=== PATIENT | female | born 1935 | race Two or more races ===

== ENCOUNTER 2018-09-06 16:28 | Inpatient (IN) | payer MEDICARE, OTHER ==
[~2018-09-06] VITALS: Ht 160 cm; Wt 54.0 kg
[2018-09-06 17:04] LABS: BASOPHILS % (AUTO) 0.5 % (0.0-2.0); EOSINOPHILS % (AUTO) 4.4 % (1.0-6.0); HEMATOCRIT 34.2 % (36-46); HEMOGLOBIN 11.3 g/dL (12.0-16.0); LYMPHOCYTES # (AUTO) 0.9 K/uL (1.0-4.8); LYMPHOCYTES % (AUTO) 6.2 % (22.0-44.0); MEAN CORPUSCULAR HEMOGLOBIN 32.9 pg (26.0-34.0); MEAN CORPUSCULAR HGB CONC 32.9 G/dL (31.0-37.0); MEAN CORPUSCULAR VOLUME 100 fL (80-100); MONOCYTES # (AUTO) 0.7 K/uL (0.1-1.0); MONOCYTES % (AUTO) 4.9 % (2.0-9.0); NEUTROPHILS # (AUTO) 11.8 K/uL (1.8-7.7); PLATELET COUNT (AUTO) 280 K/uL (150-450); RED BLOOD CELL COUNT(AUTO) 3.42 MIL/uL (4.00-5.20); RED CELL DISTRIBUTION WIDTH 16.2 % (11.5-14.5)
[2018-09-06 17:16] LABS: ANION GAP 8 mmol/L (8-16); CARBON DIOXIDE 28 mmol/L (22-29); CHLORIDE 100 mmol/L (98-107); CREATININE 0.82 mg/dL (0.60-1.30); GLUCOSE,RANDOM 292 mg/dL (70-110); POTASSIUM 3.7 mmol/L (3.5-5.1); SODIUM SERUM 136 mmol/L (136-145); UREA NITROGEN, BLOOD 32 mg/dL (7-18)
[2018-09-06 17:22] LABS: ALANINE AMINOTRANSFERASE 18 U/L (12-78); ALBUMIN 3.1 g/dL (3.4-5.0); ALKALINE PHOSPHATASE 118 U/L (46-116); ASPARTATE AMINOTRANSFERASE 12 U/L (15-37); BILIRUBIN,TOTAL 0.3 mg/dL (0.1-1.0); TOTAL PROTEIN, SERUM 6.7 g/dL (6.4-8.2)
[2018-09-06 17:24] LABS: GLOMERULAR FILTR. RATE CALC > 60 mL/min (>60)
[2018-09-06 17:27] LABS: B-TYPE NATRIURETIC PEPTIDE 198 pg/mL (0-100)
[2018-09-06] MEDS ORDERED: SODIUM CHLORIDE 0.9% 1,750 ML IV ONE (17:27)
[2018-09-06] MEDS ORDERED: LEVO50 GT (17:29)
[2018-09-06] MEDS ORDERED: INSU100V12 SQ (17:29)
[2018-09-06] MEDS ORDERED: MAGOX GT (17:29)
[2018-09-06] MEDS ORDERED: BISA5TAB12 PR (17:29)
[2018-09-06] MEDS ORDERED: CARV6 GT (17:29)
[2018-09-06] MEDS ORDERED: HEPA500014 SQ (17:29)
[2018-09-06] MEDS ORDERED: FAMO20 GT (17:29)
[2018-09-06] MEDS ORDERED: AMLO-511 GT (17:29)
[2018-09-06] MEDS ORDERED: LEVOFLOXACIN 500 MG/D5% WATER 100 ML IV ONE (17:30)
[2018-09-06] MEDS ORDERED: MYCO250C36 GT (17:34)
[2018-09-06] MEDS ORDERED: THIA100T67 GT (17:34)
[2018-09-06] MEDS ORDERED: TACR1 GT (17:34)
[2018-09-06] MEDS ORDERED: PRED5 GT (17:34)
[2018-09-06] MEDS ORDERED: BISA10S PR (17:41)
[2018-09-06] MEDS ORDERED: HEPA500018 SQ (17:41)
[2018-09-06 17:49] LABS: LACTIC ACID 2.2 mmol/L (0.4-2.0)
[2018-09-06] MEDS ORDERED: ACETAMINOPHEN 1000 MG/ISO-OSM 100 ML IV ONE (18:00)
[2018-09-06 18:21] LABS: APPEARANCE,URINE CLOUDY (CLEAR); BILIRUBIN,URINE NEGATIVE (NEGATIVE); GLUCOSE, URINE (UA) 500 mg/dL (NEGATIVE); KETONES,URINE NEGATIVE (NEGATIVE); LEUKOCYTE ESTERASE ,URINE LARGE (NEGATIVE); NITRATE,URINE NEGATIVE (NEGATIVE); OCCULT BLOOD,URINE MODERATE (NEGATIVE); PH,URINE 6.5 (5.0-8.0); PROTEIN,URINE POS 1+ (NEGATIVE)
[2018-09-06 18:59] LABS: BACTERIA,URINE Moderate /HPF (None Seen); WBC,URINE 51-100 /HPF (0-5)
[2018-09-06 19:01] LABS: SQUAMOUS EPITHELIAL CELL,UR Moderate /LPF (None Seen)
[2018-09-06] MEDS ORDERED: 0.9% SODIUM CHLORIDE 10 ML SYRINGE IVP PRN (19:15)
[2018-09-06] MEDS ORDERED: ACETAMINOPHEN 325 MG TABLET PO PRN ×2 (19:15→21:00)
[2018-09-06] MEDS ORDERED: ONDANSETRON HCL 4 MG/2 ML VIAL IVP PRN ×2 (19:15→21:00)
[2018-09-06] MEDS ORDERED: OXYGEN THERAPY IH SCH (20:00)
[2018-09-06 20:22] LABS: INFLUENZA TYPE A NEGATIVE FOR TYPE A (NEGATIVE); INFLUENZA TYPE B NEGATIVE FOR TYPE B (NEGATIVE)
[2018-09-06] MEDS ORDERED: DOCUSATE SODIUM 100 MG CAPSULE PO SCH (21:00)
[2018-09-06] MEDS ORDERED: POTASSIUM CHLORIDE 20 MEQ ER TABLET PO PRN (21:00)
[2018-09-06] MEDS ORDERED: FAMOTIDINE 20 MG TABLET PO SCH (21:00)
[2018-09-06] MEDS ORDERED: MAGNESIUM HYDROXIDE SUSPENSION 30 ML UDCUP PO PRN (21:00)
[2018-09-06] MEDS ORDERED: DEXTROSE 50%-WATER 25 GM/50 ML SYRINGE IVP PRN (21:00)
[2018-09-06] MEDS ORDERED: POTASSIUM CHL 10 MEQ/WATER 50 ML IV PRN (21:00)
[2018-09-06] MEDS ORDERED: SODIUM CHLORIDE 0.9% 1,000 ML IV ONE (21:15)
[2018-09-06] MEDS ORDERED: MAGNESIUM HYDROXIDE SUSPENSION 30 ML UDCUP GT PRN (21:30)
[2018-09-06 21:34] VITALS: BP 126/69
[2018-09-06] MEDS: MEROPENEM 2 GM in SODIUM CHLORIDE 0.9% 100 ML IV SCH (22:44)
[2018-09-06 23:49] VITALS: BP 97/51
[2018-09-07] MEDS: HEPARIN SODIUM,PORCINE 5,000 UNITS/ML VIAL SQ SCH ×4 (00:22→23:40)
[2018-09-07 04:38] VITALS: BP 145/72
[2018-09-07] MEDS: MEROPENEM 2 GM in SODIUM CHLORIDE 0.9% 100 ML IV SCH (05:42)
[2018-09-07] MEDS ORDERED: PNEUMOCOCCAL VACCINE POLYVALENT 0.5 ML VIAL [PPSV23] IM ONE (06:00)
[2018-09-07 07:05] LABS: BASOPHILS % (AUTO) 0.4 % (0.0-2.0); EOSINOPHILS % (AUTO) 1.1 % (1.0-6.0); HEMOGLOBIN 10.6 g/dL (12.0-16.0); LYMPHOCYTES # (AUTO) 1.3 K/uL (1.0-4.8); LYMPHOCYTES % (AUTO) 8.6 % (22.0-44.0); MEAN CORPUSCULAR HEMOGLOBIN 33.6 pg (26.0-34.0); MEAN CORPUSCULAR HGB CONC 33.2 G/dL (31.0-37.0); MEAN CORPUSCULAR VOLUME 101 fL (80-100); MONOCYTES % (AUTO) 6.7 % (2.0-9.0); NEUTROPHILS # (AUTO) 12.3 K/uL (1.8-7.7); NEUTROPHILS % (AUTO) 83.2 % (40.0-70.0); PLATELET COUNT (AUTO) 227 K/uL (150-450); RED BLOOD CELL COUNT(AUTO) 3.16 MIL/uL (4.00-5.20); RED CELL DISTRIBUTION WIDTH 15.7 % (11.5-14.5)
[2018-09-07 07:25] VITALS: BP 145/73
[2018-09-07 07:46] LABS: ALANINE AMINOTRANSFERASE 17 U/L (12-78); ALBUMIN 2.6 g/dL (3.4-5.0); ALKALINE PHOSPHATASE 81 U/L (46-116); ANION GAP 8 mmol/L (8-16); ASPARTATE AMINOTRANSFERASE 16 U/L (15-37); BILIRUBIN,TOTAL 0.3 mg/dL (0.1-1.0); CALCIUM, TOTAL 10.4 mg/dL (8.8-10.5); CARBON DIOXIDE 27 mmol/L (22-29); CHLORIDE 103 mmol/L (98-107); CREATININE 0.55 mg/dL (0.60-1.30); GLUCOSE,RANDOM 173 mg/dL (70-110); POTASSIUM 3.5 mmol/L (3.5-5.1); SODIUM SERUM 138 mmol/L (136-145); TOTAL PROTEIN, SERUM 5.9 g/dL (6.4-8.2); UREA NITROGEN, BLOOD 27 mg/dL (7-18)
[2018-09-07 07:51] LABS: GLOMERULAR FILTR. RATE CALC > 60 mL/min (>60)
[2018-09-07] MEDS ORDERED: WATER FOR IRRIGATION,STERILE 1000 ML SOLUTION BOTTLE ONE (08:58)
[2018-09-07] MEDS ORDERED: MYCOPHENOLATE MOFETIL 250 MG CAPSULE PEG SCH (09:00)
[2018-09-07] MEDS: PredniSONE 5 MG TABLET GT SCH (09:01)
[2018-09-07] MEDS: DOCUSATE SODIUM 100 MG CAPSULE GT SCH ×2 (09:01→21:47)
[2018-09-07] MEDS: TACROLIMUS ANHYDROUS 1 MG CAPSULE PEG SCH ×2 (09:01→21:47)
[2018-09-07] MEDS: FAMOTIDINE 20 MG TABLET GT SCH ×2 (09:01→21:48)
[2018-09-07 11:37] VITALS: BP 139/73
[2018-09-07] MEDS: MEROPENEM 1 GM in SODIUM CHLORIDE 0.9% 100 ML IV SCH ×2 (14:12→21:56)
[2018-09-07] MEDS ORDERED: 0.9% SODIUM CHLORIDE 5 ML NEB SOLUTION NEB ONE ×2 (15:06→20:07)
[2018-09-07] MEDS: ALBUTEROL SULFATE 2.5 MG/0.5 ML NEB SOLUTION NEB PRN ×2 (15:08→20:19)
[2018-09-07 16:16] VITALS: BP 147/79
[2018-09-07 19:56] VITALS: BP 153/77
[2018-09-07 23:18] VITALS: BP 145/78
[2018-09-08] VITALS (7 sets, daily range): BP systolic 145–178; BP diastolic 73–89
[2018-09-08] MEDS: MEROPENEM 1 GM in SODIUM CHLORIDE 0.9% 100 ML IV SCH ×3 (06:01→21:57)
[2018-09-08 06:22] LABS: ANION GAP 4 mmol/L (8-16); CALCIUM, TOTAL 10.7 mg/dL (8.8-10.5); CARBON DIOXIDE 30 mmol/L (22-29); CHLORIDE 103 mmol/L (98-107); CREATININE 0.59 mg/dL (0.60-1.30); GLUCOSE,RANDOM 185 mg/dL (70-110); POTASSIUM 3.6 mmol/L (3.5-5.1); SODIUM SERUM 137 mmol/L (136-145); UREA NITROGEN, BLOOD 19 mg/dL (7-18)
[2018-09-08 06:28] LABS: GLOMERULAR FILTR. RATE CALC > 60 mL/min (>60)
[2018-09-08 07:04] LABS: GLUCOMETER DEV NAME(LOC) 6N.1; GLUCOSE,POINT OF CARE 189 MG/DL (70-110)
[2018-09-08] MEDS: TACROLIMUS ANHYDROUS 1 MG CAPSULE PEG SCH ×2 (08:40→20:15)
[2018-09-08] MEDS: DOCUSATE SODIUM 100 MG CAPSULE GT SCH ×2 (08:40→20:16)
[2018-09-08] MEDS: FAMOTIDINE 20 MG TABLET GT SCH ×2 (08:40→20:16)
[2018-09-08] MEDS: PredniSONE 5 MG TABLET GT SCH (08:40)
[2018-09-08] MEDS: HEPARIN SODIUM,PORCINE 5,000 UNITS/ML VIAL SQ SCH ×3 (08:43→23:57)
[2018-09-08] MEDS ORDERED: DEXTROSE 50%-WATER 25 GM/50 ML SYRINGE IVP PRN (09:00)
[2018-09-08] MEDS: INSULIN REGULAR, HUMAN 100 UNITS/ML SQ PRN ×3 (12:53→20:44)
[2018-09-08 14:34] LABS: GLUCOMETER DEV NAME(LOC) 6N.2; GLUCOSE,POINT OF CARE 194 MG/DL (70-110)
[2018-09-08 17:15] LABS: GLUCOMETER DEV NAME(LOC) 6N.2; GLUCOSE,POINT OF CARE 181 MG/DL (70-110)
[2018-09-08] MEDS: ACETAMINOPHEN 325 MG TABLET GT PRN (20:20)
[2018-09-08] MEDS ORDERED: SODIUM CHLORIDE 0.9% 500 ML IV ONE (20:40)
[2018-09-08 21:49] LABS: GLUCOMETER DEV NAME(LOC) 6N.1; GLUCOSE,POINT OF CARE 153 MG/DL (70-110)
[2018-09-09 04:56] VITALS: BP 149/77
[2018-09-09] MEDS: MEROPENEM 1 GM in SODIUM CHLORIDE 0.9% 100 ML IV SCH ×3 (05:22→22:10)
[2018-09-09] MEDS: INSULIN REGULAR, HUMAN 100 UNITS/ML SQ PRN ×2 (06:43→17:34)
[2018-09-09 06:49] LABS: GLUCOMETER DEV NAME(LOC) 6N.1; GLUCOSE,POINT OF CARE 183 MG/DL (70-110)
[2018-09-09] MEDS: HEPARIN SODIUM,PORCINE 5,000 UNITS/ML VIAL SQ SCH ×2 (08:54→16:28)
[2018-09-09] MEDS: PredniSONE 5 MG TABLET GT SCH (08:54)
[2018-09-09] MEDS: FAMOTIDINE 20 MG TABLET GT SCH ×2 (08:54→20:52)
[2018-09-09] MEDS: DOCUSATE SODIUM 100 MG CAPSULE GT SCH ×2 (08:55→20:53)
[2018-09-09 10:38] LABS: BASOPHILS % (AUTO) 0.5 % (0.0-2.0); EOSINOPHILS % (AUTO) 2.3 % (1.0-6.0); HEMOGLOBIN 10.8 g/dL (12.0-16.0); LYMPHOCYTES # (AUTO) 1.3 K/uL (1.0-4.8); LYMPHOCYTES % (AUTO) 18.9 % (22.0-44.0); MEAN CORPUSCULAR HEMOGLOBIN 33.3 pg (26.0-34.0); MEAN CORPUSCULAR HGB CONC 32.8 G/dL (31.0-37.0); MEAN CORPUSCULAR VOLUME 102 fL (80-100); MONOCYTES # (AUTO) 0.6 K/uL (0.1-1.0); MONOCYTES % (AUTO) 8.2 % (2.0-9.0); NEUTROPHILS % (AUTO) 70.1 % (40.0-70.0); PLATELET COUNT (AUTO) 254 K/uL (150-450); RED BLOOD CELL COUNT(AUTO) 3.25 MIL/uL (4.00-5.20)
[2018-09-09 10:46] LABS: ANION GAP 5 mmol/L (8-16); CALCIUM, TOTAL 10.4 mg/dL (8.8-10.5); CARBON DIOXIDE 28 mmol/L (22-29); CHLORIDE 101 mmol/L (98-107); CREATININE 0.66 mg/dL (0.60-1.30); GLUCOSE,RANDOM 183 mg/dL (70-110); POTASSIUM 4.8 mmol/L (3.5-5.1); SODIUM SERUM 134 mmol/L (136-145); UREA NITROGEN, BLOOD 23 mg/dL (7-18)
[2018-09-09 10:47] LABS: GLOMERULAR FILTR. RATE CALC > 60 mL/min (>60)
[2018-09-09] MEDS: TACROLIMUS ANHYDROUS 1 MG CAPSULE PEG SCH ×2 (11:18→20:52)
[2018-09-09 12:00] VITALS: BP 155/77
[2018-09-09 16:04] VITALS: BP 136/84
[2018-09-09 17:29] LABS: GLUCOMETER DEV NAME(LOC) 6N.2; GLUCOSE,POINT OF CARE 183 MG/DL (70-110)
[2018-09-09 19:38] VITALS: BP 137/78
[2018-09-09 23:45] VITALS: BP 144/74
[2018-09-10] MEDS: HEPARIN SODIUM,PORCINE 5,000 UNITS/ML VIAL SQ SCH ×3 (00:52→16:00)
[2018-09-10] MEDS: INSULIN REGULAR, HUMAN 100 UNITS/ML SQ PRN ×4 (01:32→17:34)
[2018-09-10 03:14] LABS: GLUCOMETER DEV NAME(LOC) 6N.2; GLUCOSE,POINT OF CARE 206 MG/DL (70-110)
[2018-09-10 04:44] VITALS: BP 148/87
[2018-09-10 06:16] LABS: GLUCOMETER DEV NAME(LOC) 6N.2; GLUCOSE,POINT OF CARE 193 MG/DL (70-110)
[2018-09-10] MEDS: MEROPENEM 1 GM in SODIUM CHLORIDE 0.9% 100 ML IV SCH ×2 (06:34→14:13)
[2018-09-10 07:22] VITALS: BP 142/78
[2018-09-10] MEDS: DOCUSATE SODIUM 100 MG CAPSULE GT SCH ×2 (08:51→19:47)
[2018-09-10] MEDS: ALBUTEROL SULFATE 2.5 MG/0.5 ML NEB SOLUTION NEB PRN ×3 (08:52→21:51)
[2018-09-10] MEDS: PredniSONE 20 MG TABLET GT SCH (08:52)
[2018-09-10] MEDS: TACROLIMUS ANHYDROUS 1 MG CAPSULE PEG SCH ×2 (08:52→19:47)
[2018-09-10] MEDS: FAMOTIDINE 20 MG TABLET GT SCH ×2 (08:52→19:47)
[2018-09-10 12:30] VITALS: BP 141/74
[2018-09-10 12:34] VITALS: BP 141/74
[2018-09-10 14:24] LABS: GLUCOMETER DEV NAME(LOC) 6N.1; GLUCOSE,POINT OF CARE 282 MG/DL (70-110)
[2018-09-10] MEDS ORDERED: 0.9% SODIUM CHLORIDE 5 ML NEB SOLUTION NEB ONE ×2 (15:59→21:50)
[2018-09-10 16:02] VITALS: BP 119/75
[2018-09-10 19:23] LABS: GLUCOMETER DEV NAME(LOC) 6N.1; GLUCOSE,POINT OF CARE 261 MG/DL (70-110)
[2018-09-10 19:41] VITALS: BP 145/76
[2018-09-10] MEDS ORDERED: SODIUM CHLORIDE 0.9% 250 ML IV ONE (23:48)
[2018-09-11] MEDS: MEROPENEM 1 GM in SODIUM CHLORIDE 0.9% 100 ML IV SCH ×4 (00:04→21:48)
[2018-09-11 00:17] VITALS: BP 143/75
[2018-09-11] MEDS: INSULIN REGULAR, HUMAN 100 UNITS/ML SQ PRN ×5 (00:58→20:55)
[2018-09-11] MEDS ORDERED: 0.9% SODIUM CHLORIDE 5 ML NEB SOLUTION NEB ONE (02:55)
[2018-09-11] MEDS: ALBUTEROL SULFATE 2.5 MG/0.5 ML NEB SOLUTION NEB PRN (02:56)
[2018-09-11] MEDS ORDERED: SODIUM CHLORIDE 0.9% 250 ML IV ONE (03:56)
[2018-09-11 04:35] VITALS: BP 130/65
[2018-09-11 05:45] LABS: GLUCOMETER DEV NAME(LOC) 6N.1; GLUCOSE,POINT OF CARE 142 MG/DL (70-110)
[2018-09-11 05:45] LABS: GLUCOMETER DEV NAME(LOC) 6N.1; GLUCOSE,POINT OF CARE 149 MG/DL (70-110)
[2018-09-11 06:16] LABS: ANION GAP 4 mmol/L (8-16); CALCIUM, TOTAL 10.2 mg/dL (8.8-10.5); CARBON DIOXIDE 31 mmol/L (22-29); CHLORIDE 99 mmol/L (98-107); GLUCOSE,RANDOM 133 mg/dL (70-110); POTASSIUM 4.5 mmol/L (3.5-5.1); SODIUM SERUM 134 mmol/L (136-145); UREA NITROGEN, BLOOD 29 mg/dL (7-18)
[2018-09-11 06:29] LABS: GLOMERULAR FILTR. RATE CALC > 60 mL/min (>60)
[2018-09-11] MEDS: HEPARIN SODIUM,PORCINE 5,000 UNITS/ML VIAL SQ SCH ×3 (07:32→16:00)
[2018-09-11 08:03] VITALS: BP 152/76
[2018-09-11] MEDS: TACROLIMUS ANHYDROUS 1 MG CAPSULE PEG SCH ×2 (08:07→20:35)
[2018-09-11] MEDS: PredniSONE 20 MG TABLET GT SCH (08:07)
[2018-09-11] MEDS: FAMOTIDINE 20 MG TABLET GT SCH ×2 (08:08→20:35)
[2018-09-11] MEDS: DOCUSATE SODIUM 100 MG CAPSULE GT SCH ×2 (08:08→20:35)
[2018-09-11 09:26] LABS: BASOPHILS % (AUTO) 0.3 % (0.0-2.0); EOSINOPHILS % (AUTO) 0.9 % (1.0-6.0); HEMOGLOBIN 10.5 g/dL (12.0-16.0); LYMPHOCYTES # (AUTO) 2.1 K/uL (1.0-4.8); LYMPHOCYTES % (AUTO) 32.1 % (22.0-44.0); MEAN CORPUSCULAR VOLUME 100 fL (80-100); MONOCYTES # (AUTO) 0.7 K/uL (0.1-1.0); MONOCYTES % (AUTO) 11.6 % (2.0-9.0); NEUTROPHILS # (AUTO) 3.5 K/uL (1.8-7.7); NEUTROPHILS % (AUTO) 55.1 % (40.0-70.0); PLATELET COUNT (AUTO) 231 K/uL (150-450); RED CELL DISTRIBUTION WIDTH 14.8 % (11.5-14.5)
[2018-09-11 11:19] LABS: GLUCOMETER DEV NAME(LOC) 6N.1; GLUCOSE,POINT OF CARE 226 MG/DL (70-110)
[2018-09-11 11:38] VITALS: BP 122/64
[2018-09-11] MEDS: FUROSEMIDE 20 MG/2 ML VIAL IVP SCH (13:18)
[2018-09-11 16:03] VITALS: BP 145/84
[2018-09-11 18:24] LABS: GLUCOMETER DEV NAME(LOC) 6N.1; GLUCOSE,POINT OF CARE 317 MG/DL (70-110)
[2018-09-11 19:53] VITALS: BP 122/67
[2018-09-12 00:07] VITALS: BP 125/69
[2018-09-12] MEDS ORDERED: 0.9% SODIUM CHLORIDE 5 ML NEB SOLUTION NEB ONE (00:38)
[2018-09-12] MEDS: ALBUTEROL SULFATE 2.5 MG/0.5 ML NEB SOLUTION NEB PRN (00:40)
[2018-09-12 02:04] LABS: GLUCOMETER DEV NAME(LOC) 6N.1; GLUCOSE,POINT OF CARE 158 MG/DL (70-110)
[2018-09-12] MEDS ORDERED: SODIUM CHLORIDE 0.9% 500 ML IV ONE (03:40)
[2018-09-12 05:05] VITALS: BP 125/68
[2018-09-12] MEDS: MEROPENEM 1 GM in SODIUM CHLORIDE 0.9% 100 ML IV SCH ×3 (05:24→21:41)
[2018-09-12] MEDS: INSULIN REGULAR, HUMAN 100 UNITS/ML SQ PRN ×4 (07:00→21:36)
[2018-09-12 07:45] VITALS: BP 156/93
[2018-09-12 08:14] LABS: GLUCOMETER DEV NAME(LOC) 6N.2; GLUCOSE,POINT OF CARE 164 MG/DL (70-110)
[2018-09-12] MEDS: HEPARIN SODIUM,PORCINE 5,000 UNITS/ML VIAL SQ SCH ×2 (08:14)
[2018-09-12] MEDS: DOCUSATE SODIUM 100 MG CAPSULE GT SCH ×2 (08:14→20:43)
[2018-09-12] MEDS: TACROLIMUS ANHYDROUS 1 MG CAPSULE PEG SCH ×2 (08:15→20:44)
[2018-09-12] MEDS: FUROSEMIDE 20 MG/2 ML VIAL IVP SCH (08:15)
[2018-09-12] MEDS: PredniSONE 20 MG TABLET GT SCH (08:16)
[2018-09-12] MEDS: FAMOTIDINE 20 MG TABLET GT SCH ×2 (08:16→20:44)
[2018-09-12] MEDS: ACETAMINOPHEN 325 MG TABLET GT PRN (08:16)
[2018-09-12 11:29] LABS: GLUCOMETER DEV NAME(LOC) 6N.2; GLUCOSE,POINT OF CARE 242 MG/DL (70-110)
[2018-09-12 12:57] VITALS: BP 152/94
[2018-09-12 15:02] VITALS: BP 123/83
[2018-09-12 17:39] LABS: GLUCOMETER DEV NAME(LOC) 6N.1; GLUCOSE,POINT OF CARE 223 MG/DL (70-110)
[2018-09-12 19:32] LABS: APPEARANCE,URINE CLOUDY (CLEAR); BILIRUBIN,URINE NEGATIVE (NEGATIVE); GLUCOSE, URINE (UA) 100 mg/dL (NEGATIVE); KETONES,URINE NEGATIVE (NEGATIVE); LEUKOCYTE ESTERASE ,URINE NEGATIVE (NEGATIVE); NITRATE,URINE NEGATIVE (NEGATIVE); OCCULT BLOOD,URINE LARGE (NEGATIVE); PROTEIN,URINE TRACE (NEGATIVE)
[2018-09-12 19:48] LABS: WBC,URINE 0-2 /HPF (0-5)
[2018-09-12 19:49] LABS: AMORPHOUS SEDIMENT,UR Moderate /LPF (None Seen); BACTERIA,URINE Few /HPF (None Seen); SQUAMOUS EPITHELIAL CELL,UR Few /LPF (None Seen)
[2018-09-12 20:00] VITALS: BP 141/86
[2018-09-12 22:44] LABS: GLUCOMETER DEV NAME(LOC) 6N.1; GLUCOSE,POINT OF CARE 126 MG/DL (70-110)
[2018-09-13] VITALS (7 sets, daily range): BP systolic 106–156; BP diastolic 66–91
[2018-09-13] MEDS ORDERED: 0.9% SODIUM CHLORIDE 5 ML NEB SOLUTION NEB ONE (03:25)
[2018-09-13] MEDS: ALBUTEROL SULFATE 2.5 MG/0.5 ML NEB SOLUTION NEB PRN (03:26)
[2018-09-13] MEDS: MEROPENEM 1 GM in SODIUM CHLORIDE 0.9% 100 ML IV SCH (05:31)
[2018-09-13] MEDS: INSULIN REGULAR, HUMAN 100 UNITS/ML SQ PRN ×3 (05:36→17:47)
[2018-09-13 06:14] LABS: GLUCOMETER DEV NAME(LOC) 6N.1; GLUCOSE,POINT OF CARE 216 MG/DL (70-110)
[2018-09-13 06:42] LABS: ANION GAP 6 mmol/L (8-16); CALCIUM, TOTAL 10.2 mg/dL (8.8-10.5); CARBON DIOXIDE 28 mmol/L (22-29); CHLORIDE 92 mmol/L (98-107); CREATININE 0.77 mg/dL (0.60-1.30); GLUCOSE,RANDOM 199 mg/dL (70-110); POTASSIUM 4.5 mmol/L (3.5-5.1); SODIUM SERUM 126 mmol/L (136-145); UREA NITROGEN, BLOOD 37 mg/dL (7-18)
[2018-09-13 06:44] LABS: GLOMERULAR FILTR. RATE CALC > 60 mL/min (>60)
[2018-09-13] MEDS: TACROLIMUS ANHYDROUS 1 MG CAPSULE PEG SCH ×2 (09:10→20:36)
[2018-09-13] MEDS: DOCUSATE SODIUM 100 MG CAPSULE GT SCH ×2 (09:10→20:36)
[2018-09-13 14:09] LABS: GLUCOMETER DEV NAME(LOC) 6N.1; GLUCOSE,POINT OF CARE 210 MG/DL (70-110)
[2018-09-13] MEDS: MYCOPHENOLATE MOFETIL 250 MG CAPSULE PEG SCH (16:36)
[2018-09-13 19:49] LABS: GLUCOMETER DEV NAME(LOC) 6N.2; GLUCOSE,POINT OF CARE 247 MG/DL (70-110)
[2018-09-14] MEDS: INSULIN REGULAR, HUMAN 100 UNITS/ML SQ PRN ×5 (00:58→22:14)
[2018-09-14 01:14] LABS: GLUCOMETER DEV NAME(LOC) 6N.1; GLUCOSE,POINT OF CARE 204 MG/DL (70-110)
[2018-09-14 05:33] VITALS: BP 116/66
[2018-09-14] MEDS: MYCOPHENOLATE MOFETIL 250 MG CAPSULE PEG SCH ×2 (06:11→17:35)
[2018-09-14 06:38] LABS: ANION GAP 6 mmol/L (8-16); CALCIUM, TOTAL 10.4 mg/dL (8.8-10.5); CARBON DIOXIDE 27 mmol/L (22-29); CHLORIDE 98 mmol/L (98-107); CREATININE 0.83 mg/dL (0.60-1.30); GLUCOSE,RANDOM 237 mg/dL (70-110); POTASSIUM 5.2 mmol/L (3.5-5.1); SODIUM SERUM 131 mmol/L (136-145); UREA NITROGEN, BLOOD 42 mg/dL (7-18)
[2018-09-14] MEDS: FAMOTIDINE 20 MG TABLET PEG SCH (06:58)
[2018-09-14 07:12] LABS: GLOMERULAR FILTR. RATE CALC > 60 mL/min (>60)
[2018-09-14 07:34] LABS: GLUCOMETER DEV NAME(LOC) 6N.2; GLUCOSE,POINT OF CARE 251 MG/DL (70-110)
[2018-09-14 07:56] VITALS: BP 102/67
[2018-09-14] MEDS: DOCUSATE SODIUM 100 MG CAPSULE GT SCH ×2 (08:01→20:31)
[2018-09-14] MEDS: TACROLIMUS ANHYDROUS 1 MG CAPSULE PEG SCH ×2 (08:01→20:31)
[2018-09-14] MEDS: PredniSONE 20 MG TABLET GT SCH (08:01)
[2018-09-14 12:06] VITALS: BP 94/59
[2018-09-14 13:39] LABS: GLUCOMETER DEV NAME(LOC) 6N.1; GLUCOSE,POINT OF CARE 241 MG/DL (70-110)
[2018-09-14 15:18] VITALS: BP 113/72
[2018-09-14 19:49] LABS: GLUCOMETER DEV NAME(LOC) 6N.2; GLUCOSE,POINT OF CARE 270 MG/DL (70-110)
[2018-09-14 20:30] VITALS: BP 114/62
[2018-09-14 22:23] LABS: GLUCOMETER DEV NAME(LOC) 6N.1; GLUCOSE,POINT OF CARE 211 MG/DL (70-110)
[2018-09-14 23:53] VITALS: BP 109/79
[2018-09-15 05:06] VITALS: BP 125/81
[2018-09-15] MEDS: INSULIN REGULAR, HUMAN 100 UNITS/ML SQ PRN ×4 (05:26→20:38)
[2018-09-15] MEDS: MYCOPHENOLATE MOFETIL 250 MG CAPSULE PEG SCH ×2 (05:29→16:39)
[2018-09-15] MEDS: FAMOTIDINE 20 MG TABLET PEG SCH (05:31)
[2018-09-15 06:12] LABS: BASOPHILS % (AUTO) 0.2 % (0.0-2.0); EOSINOPHILS % (AUTO) 2.9 % (1.0-6.0); HEMATOCRIT 34.2 % (36-46); HEMOGLOBIN 11.8 g/dL (12.0-16.0); LYMPHOCYTES # (AUTO) 2.6 K/uL (1.0-4.8); LYMPHOCYTES % (AUTO) 23.2 % (22.0-44.0); MEAN CORPUSCULAR HEMOGLOBIN 34.1 pg (26.0-34.0); MEAN CORPUSCULAR HGB CONC 34.3 G/dL (31.0-37.0); MEAN CORPUSCULAR VOLUME 99 fL (80-100); MONOCYTES # (AUTO) 0.9 K/uL (0.1-1.0); MONOCYTES % (AUTO) 8.5 % (2.0-9.0); NEUTROPHILS # (AUTO) 7.2 K/uL (1.8-7.7); NEUTROPHILS % (AUTO) 65.2 % (40.0-70.0); PLATELET COUNT (AUTO) 392 K/uL (150-450); RED BLOOD CELL COUNT(AUTO) 3.45 MIL/uL (4.00-5.20); RED CELL DISTRIBUTION WIDTH 14.9 % (11.5-14.5)
[2018-09-15 06:23] LABS: ANION GAP 3 mmol/L (8-16); CALCIUM, TOTAL 10.7 mg/dL (8.8-10.5); CARBON DIOXIDE 31 mmol/L (22-29); CHLORIDE 99 mmol/L (98-107); CREATININE 0.88 mg/dL (0.60-1.30); GLUCOSE,RANDOM 263 mg/dL (70-110); POTASSIUM 4.8 mmol/L (3.5-5.1); SODIUM SERUM 133 mmol/L (136-145); UREA NITROGEN, BLOOD 50 mg/dL (7-18)
[2018-09-15 06:48] LABS: GLOMERULAR FILTR. RATE CALC > 60 mL/min (>60)
[2018-09-15 07:58] VITALS: BP 92/57
[2018-09-15] MEDS: PredniSONE 20 MG TABLET GT SCH (08:54)
[2018-09-15] MEDS: DOCUSATE SODIUM 100 MG CAPSULE GT SCH ×2 (08:54→20:17)
[2018-09-15] MEDS: TACROLIMUS ANHYDROUS 1 MG CAPSULE PEG SCH ×2 (08:55→20:17)
[2018-09-15 11:06] VITALS: BP 131/79
[2018-09-15 12:35] LABS: GLUCOMETER DEV NAME(LOC) 6N.2; GLUCOSE,POINT OF CARE 254 MG/DL (70-110)
[2018-09-15 12:35] LABS: GLUCOMETER DEV NAME(LOC) 6N.1; GLUCOSE,POINT OF CARE 271 MG/DL (70-110)
[2018-09-15 15:48] VITALS: BP 136/86
[2018-09-15 17:54] LABS: GLUCOMETER DEV NAME(LOC) 6N.1; GLUCOSE,POINT OF CARE 309 MG/DL (70-110)
[2018-09-15 19:46] VITALS: BP 115/64
[2018-09-15 20:44] LABS: GLUCOMETER DEV NAME(LOC) 6N.2; GLUCOSE,POINT OF CARE 256 MG/DL (70-110)
[2018-09-15 23:37] VITALS: BP 111/69
[2018-09-16 04:16] VITALS: BP 123/64
[2018-09-16] MEDS: FAMOTIDINE 20 MG TABLET PEG SCH (05:46)
[2018-09-16] MEDS: MYCOPHENOLATE MOFETIL 250 MG CAPSULE PEG SCH (05:46)
[2018-09-16] MEDS: INSULIN REGULAR, HUMAN 100 UNITS/ML SQ PRN ×2 (05:47→12:08)
[2018-09-16 06:14] LABS: BASOPHILS % (AUTO) 0.4 % (0.0-2.0); EOSINOPHILS % (AUTO) 4.2 % (1.0-6.0); HEMATOCRIT 34.5 % (36-46); HEMOGLOBIN 12.1 g/dL (12.0-16.0); LYMPHOCYTES # (AUTO) 1.4 K/uL (1.0-4.8); LYMPHOCYTES % (AUTO) 13.3 % (22.0-44.0); MEAN CORPUSCULAR HEMOGLOBIN 34.9 pg (26.0-34.0); MEAN CORPUSCULAR HGB CONC 34.9 G/dL (31.0-37.0); MEAN CORPUSCULAR VOLUME 100 fL (80-100); MONOCYTES # (AUTO) 0.6 K/uL (0.1-1.0); MONOCYTES % (AUTO) 5.6 % (2.0-9.0); NEUTROPHILS # (AUTO) 8.3 K/uL (1.8-7.7); NEUTROPHILS % (AUTO) 76.5 % (40.0-70.0); PLATELET COUNT (AUTO) 404 K/uL (150-450); RED BLOOD CELL COUNT(AUTO) 3.46 MIL/uL (4.00-5.20)
[2018-09-16 06:59] LABS: GLUCOMETER DEV NAME(LOC) 6N.2; GLUCOSE,POINT OF CARE 234 MG/DL (70-110)
[2018-09-16 07:16] LABS: ALANINE AMINOTRANSFERASE 20 U/L (12-78); ALBUMIN 2.6 g/dL (3.4-5.0); ALKALINE PHOSPHATASE 125 U/L (46-116); ANION GAP 2 mmol/L (8-16); ASPARTATE AMINOTRANSFERASE 14 U/L (15-37); BILIRUBIN,TOTAL 0.2 mg/dL (0.1-1.0); CALCIUM, TOTAL 10.5 mg/dL (8.8-10.5); CARBON DIOXIDE 33 mmol/L (22-29); CHLORIDE 98 mmol/L (98-107); CREATININE 0.83 mg/dL (0.60-1.30); GLUCOSE,RANDOM 247 mg/dL (70-110); PHOSPHORUS 3.1 mg/dL (2.5-4.9); POTASSIUM 4.6 mmol/L (3.5-5.1); SODIUM SERUM 133 mmol/L (136-145); TOTAL PROTEIN, SERUM 6.3 g/dL (6.4-8.2); UREA NITROGEN, BLOOD 45 mg/dL (7-18)
[2018-09-16 07:17] LABS: GLOMERULAR FILTR. RATE CALC > 60 mL/min (>60)
[2018-09-16 08:02] VITALS: BP 111/68
[2018-09-16] MEDS: PredniSONE 20 MG TABLET GT SCH (09:36)
[2018-09-16] MEDS: TACROLIMUS ANHYDROUS 1 MG CAPSULE PEG SCH (09:37)
[2018-09-16] MEDS: DOCUSATE SODIUM 100 MG CAPSULE GT SCH (09:37)
[2018-09-16 11:24] LABS: GLUCOMETER DEV NAME(LOC) 6N.2; GLUCOSE,POINT OF CARE 230 MG/DL (70-110)
[2018-09-16 12:07] VITALS: BP 116/67
[2018-09-16 16:20] VITALS: BP 137/88
== END 2018-09-16 17:30 | DRG 871 ==
LOC: EMS 16:28 → 6N 19:00
PROVIDERS: ADMIT Internal Medicine; ATTEND Internal Medicine
PROC: 3E02340 Introduction of Influenza Vaccine into Muscle, Percutaneous Approach (ICD-10-PCS; principal; 2018-09-07)
PROC: 3E0234Z Introduction of Serum, Toxoid and Vaccine into Muscle, Percutaneous Approach (ICD-10-PCS; 2018-09-07)
DX: A41.9 Sepsis, unspecified organism (principal); E43 Unspecified severe protein-calorie malnutrition; S72.009A Fracture of unspecified part of neck of unspecified femur, initial encounter for closed fracture; J96.91 Respiratory failure, unspecified with hypoxia; N39.0 Urinary tract infection, site not specified; E87.1 Hypo-osmolality and hyponatremia; N12 Tubulo-interstitial nephritis, not specified as acute or chronic; N25.81 Secondary hyperparathyroidism of renal origin; I25.10 Atherosclerotic heart disease of native coronary artery without angina pectoris; Z68.20 Body mass index [BMI] 20.0-20.9, adult; F03.90 Unspecified dementia, unspecified severity, without behavioral disturbance, psychotic disturbance, mood disturbance, and anxiety; R13.10 Dysphagia, unspecified; E83.52 Hypercalcemia; R31.9 Hematuria, unspecified; E03.9 Hypothyroidism, unspecified; E11.22 Type 2 diabetes mellitus with diabetic chronic kidney disease; E11.65 Type 2 diabetes mellitus with hyperglycemia; E78.5 Hyperlipidemia, unspecified; G20 Parkinson's disease; I12.9 Hypertensive chronic kidney disease with stage 1 through stage 4 chronic kidney disease, or unspecified chronic kidney disease; N18.9 Chronic kidney disease, unspecified; X58.XXXA Exposure to other specified factors, initial encounter; R62.7 Adult failure to thrive; Z66 Do not resuscitate; Z74.01 Bed confinement status; Z79.4 Long term (current) use of insulin; Z79.899 Other long term (current) drug therapy; Z88.1 Allergy status to other antibiotic agents; Z88.8 Allergy status to other drugs, medicaments and biological substances; Y93.9 Activity, unspecified; Y92.9 Unspecified place or not applicable; Y99.8 Other external cause status; Z23 Encounter for immunization; Z68.21 Body mass index [BMI] 21.0-21.9, adult
CPT/HCPCS: 51702; 76770; 80197; 83605; 83735; 83970; 84100; 87040; 87081; 87086; 87804; 90686; 90732; 93005; 94640; 96365; 96368; 99291; G0378; J0131; J1644; J1940; J1956; J2185; J7030; J7040; J7050; J7507; J7517